=== PATIENT | female | born 1975 | race Caucasian/White ===

== ENCOUNTER → 2019-08-30 09:01 | Outpatient (CLI) | payer MEDICAID, SELFPAY ==
[2017-11-25 16:48] VITALS: BMI 27.8
== END ==
DX: R06.02 Shortness of breath (principal); R12 Heartburn; R63.1 Polydipsia

== ENCOUNTER → 2019-09-01 11:31 | Outpatient (CLI) | payer MEDICAID, SELFPAY ==
[2019-09-01 13:11] LABS: Absolute Lymphocyte Count 1.95 X10^3/uL (0.83-4.51); Absolute Neutrophil Count 3.4 X10^3/uL (2.0-7.7); Basophil# 0.05 X10^3/uL; Basophil% 0.8 % (0-1); Eosinophil# 0.14 X10^3/uL; Eosinophils% 2.3 % (0-5); Hematocrit 46.6 % (37-47); Hemoglobin 13.7 g/dL (12.0-15.0); Lymphocyte # 1.95 X10^3/ul (4.0); Lymphocyte % 32.7 % (19-41); Mean Corp Hgb Conc 29.4 g/dL (32-36); Mean Corpuscular Hgb 25.9 pg (27.0-32.0); Mean Corpuscular Volume 88.3 fL (81-99); Mean Platelet Vol. 10.6 fl (6.2-12.0); Monocyte# 0.43 X10^3/uL; Monocyte% 7.2 % (0-10); NRBC Flagged by Analyzer 0 % (0-5); Neutrophil # 3.38 X10^3/uL (2.7-7.7); Neutrophil % 56.7 % (47-70); Platelet Count 178 K/mm3 (150-450); RBC Distribution Width CV 14.5 % (11.6-14.6); RBC Distribution Width SD 46.2 fl (35.1-43.9); Red Blood Count 5.28 M/mm3 (4.2-5.4)
[2019-09-01 13:38] LABS: Hemoglobin A1c 6.1 % (4.2-6.3)
[2019-09-01 13:41] LABS: Vitamin D,25 Hydroxy 16.2 ng/mL (29.95-100.01)
[2019-09-01 13:58] LABS: ALB/GLOB Ratio 1.1 RATIO (0.9-2.4); AST(SGOT) 14 U/L (15-37); Alanine Aminotransfer ALT/SGPT 21 U/L (13-56); Albumin, Serum 3.6 g/dL (3.2-5.0); Alkaline Phosphatase 70 U/L (45-117); Anion Gap 8 (5-15); BUN 7 mg/dL (7-18); BUN/Creat Ratio 11.2 RATIO (10-20); Chloride 108 mmol/L (98-107); Cholesterol 151 mg/dL (200); Creatinine, Serum 0.63 mg/dL (0.55-1.02); EST Glomerular Filtration Rate 109 mL/min (>60); Est Glom Filt Rate - Afr Amer 132 mL/min (>60); Globulin 3.3 g/dL (2.2-4.2); Glucose 96 mg/dL (74-106); High Density Lipoprotein 56 mg/dL; Potassium 4.5 mmol/L (3.5-5.1); Protein, Total 6.9 g/dL (6.4-8.2); Sodium Level 140 mmol/L (136-145); T4 Free Direct 1.15 ng/dL (0.76-1.46); Thyroid Stim Hormone (TSH) 0.81 uIU/mL (0.358-3.74); Triglycerides 85 mg/dL; Very Low Density Lipoprotein 17 mg/dL (5-40)
[2019-09-12 16:07] LABS: Dilute Prothrombin Time (dPT) 39.9 sec (0.0-55.0); Dilute Russell Viper Venom 34.6 sec (0.0-47.0); PTT-LA 33.5 sec (0.0-51.9); Protein C Antigen 96 % (60-150); Protein C, Functional 114 % (73-180); Thrombin Time 17.4 sec (0.0-23.0); dPT Confirm Ratio 1.18 Ratio (0.00-1.40)
[2019-09-12 18:51] LABS: Anti-Cardiolipin Ab, IgG, Qn < 9 GPL U/mL (0-14); Anti-Cardiolipin Ab, IgM, Qn < 9 MPL U/mL (0-12); Interpretation Comment: (.); Protein S, Free 84 % (57-157); Protein S, Funtional 80 % (63-140); Protein S, Total 85 % (60-150)
== END ==
PROVIDERS: Referring Provider Nurse Practitioner Family
DX: R06.02 Shortness of breath (principal); R12 Heartburn; R63.1 Polydipsia
CPT/HCPCS: 36415; 80053; 80061; 81240; 81241; 81291; 82306; 83036; 84439; 84443; 85025; 85302; 85303; 85305; 85306; 86147

== ENCOUNTER → 2019-11-17 11:55 | Outpatient (CLI) | payer MEDICAID, SELFPAY ==
--- NOTE | 2019-11-17 11:58 | BI_ITS ---
MAMMOGRAPHY - BILATERAL SCREENING REASON FOR EXAM: Female, 44 years old. Routine annual screening examination. PERTINENT HISTORY: Non-contributory. TECHNIQUE: Digital bilateral breast bobby (3D mammographic acquisition) in the CC and MLO projections. 2-D mediolateral oblique (MLO) and craniocaudad (CC) views of both breasts were obtained. CAD: Full Field Digital Mammography with Computer Added Detection was performed. COMPARISON: None. Baseline examination. FINDINGS: Breast Composition: There are scattered areas of fibroglandular density. There are no dominant masses or suspicious calcifications. Benign appearing bilateral axillary lymph nodes. No other significant abnormalities are identified. BI/SCREEN MAMM (CAD) W/BOBBY BILAT IMPRESSION: Negative screening mammogram. Yearly followup mammogram recommended. (A) ASSESSMENT CATEGORY: BIRADS Category 2: Benign. A letter regarding these results will be sent to the patient by the facility within 30 days. Approximately 10% of breast cancers are not detected by mammography. A normal mammogram should not delay biopsy of a clinically suspicious abnormality. [id number] Electronically Signed: Vickey Zuniga, at 13:18 EST , Service support ,
== END ==
DX: Z12.31 Encounter for screening mammogram for malignant neoplasm of breast (principal)
CPT/HCPCS: 77063; 77067

== ENCOUNTER 2023-07-27 19:25 | Emergency (ER) | payer MEDICAID, SELFPAY ==
[2023-07-27 19:26] VITALS: BP 181/90; PULSE 78; RESP 18; TEMP 36.6; O2SAT 100; BMI 36.6
--- NOTE | 2023-07-27 20:00 | US_ITS ---
INDICATION: LEFT FOOT AND CALF PAIN EXAMINATION: Ultrasound US Venous Duplex LE Unilat / Limited TECHNIQUE: Verduzco scale, pulse wave, and color flow Doppler imaging was performed of the lower extremity venous system. The left greater saphenous, common femoral, femoral, popliteal, posterior tibial and peroneal veins were interrogated. COMPARISON: None. FINDINGS: There is normal compression, augmentation, and color flow signal throughout the visualized deep lower extremity veins. US/Venous Duplex Imag/Limited/Uni IMPRESSION: No sonographic evidence of deep venous thrombosis. Electronically Signed: Carlos A Espinoza MD at 20:51 EDT ,
--- NOTE | 2023-07-27 20:25 | ED.VIS.LOWEX ---
HPI History of Present Illness Chief Complaint: Lower Extremity Injury Informant: patient Narrative Narrative: Patient is a 48-year-old female with history of DVT/pulmonary emboli not currently on any anticoagulation presenting with atraumatic left foot and calf pain. Patient states she might of twisted it wrong but she does not remember actually injuring her leg. She has had increased pain that started at the base of her foot and is going up the medial aspect of her ankle and into her calf now. She states it feels tight in her leg. This has going on for the past few days. She is on her feet a lot for work. She is concerned she could have a blood clot so she came in for further evaluation. Denies any chest pain, shortness breath or difficulty breathing. Last had Tylenol around 2 PM. Denies any other complaints at this time. [facility] Home Medications NK 07/27/23 [History Last Taken Unknown] Allergy/AdvReac Type Severity Reaction Status Date / Time No Known Allergies Allergy Verified 07/27/23 19:28 Social History Smoking Status: Current every day smoker tobacco type: cigarettes ROS ROS ED Constitutional Constitutional ED: Denies chills or fever(s) Cardiovascular Cardiovascular: Denies chest pain or palpitations Respiratory/Chest Respiratory/Chest: Denies cough Musculoskeletal Musculoskeletal: Reports other Details: left foot/ankle pain and swelling Integumentary Denies rash Neurologic Neurologic: Denies paresthesias or weakness Hematologic/Lymphatic Hematologic/Lymphatic: Denies easy bleeding or easy bruising EXAM Physical Exam Const Vital Signs: 07/27/23 19:26 Temperature 97.9 F Temperature Source Temporal Pulse Rate 78 Respiratory Rate 18 Blood Pressure 181/90 H Blood Pressure Mean 120 Pulse Ox 100 Oxygen Delivery Method Room Air Positive well nourished and well developed General Appearance ED: well developed and NAD HEENT Reports moist mucous membranes Chest Wall inspection of chest normal Resp normal respiratory effort and clear to auscultation bilaterally Cardio regular rate, regular rhythm and no murmurs Cardio Narrative: 2+ DP pulses Extremity normal to inspection and full ROM Extremity Narrative: Left lower extremity: No significant edema appreciated. No pitting edema. No significant asymmetry of the legs appreciated. No palpable cords. Patient does have some mild tenderness palpation around the medial malleolus but no pinpoint bony tenderness. No tenderness to palpation over the proximal metatarsals. No obvious deformity. Neuro oriented x3, moves all extremities and no sensory deficits noted Sensorium / Orientation: alert Skin no wounds Rashes: no rashes MDM MDM MDM Narrative Medical decision making narrative: Patient evaluated for left medial foot/ankle pain going up to her calf. She does have a history of DVTs and is concerned that she could have a DVT. Venous duplex is negative. She does not have any cellulitic or infectious symptoms. She does go on to say that she has been moving lately since possible she might have injured her ankle. She will placed in an Jamaal wrap and counseled on RICE therapy as well as NSAID use. Patient will follow-up with PCP. Given return precautions. Discharged home in stable condition. Differential includes ankle sprain and DVT. With no bony tenderness or obvious trauma low suspicion for ankle fracture/dislocation Radiography Diagnostic Testing: Clinical Impression(s) from Imaging Studies Venous Duplex 07/27/23 20:00 IMPRESSION: No sonographic evidence of deep venous thrombosis. Electronically Signed: Carlos A Espinoza MD at 20:51 EDT Reading Location ID and State: [address] [place] [address] Tel , Service support , Discharge Plan Triage Chief Complaint: Lower Extremity Injury ED Provider: Magda Zendejas Dx/Rx/DC Orders Clinical Impression: Injury of left ankle Instructions: ED Ankle Sprain (Adult) Prescriptions: No Action NK Primary Care Provider: Nova Schrader Referrals: [facility] Nova Virk [Primary Care Provider] - Activity Restrictions/Additional Instructions: Wear Jamaal wrap. Elevate your leg as much possible and ice the ankle. Alternate ibuprofen and Tylenol as needed for pain. You do not have a DVT in your leg today. Disposition Disposition: Home, Self Care
[2023-07-27] MEDS: Acetaminophen 325 MG Tablet 650 MG PO (20:49)
[2023-07-27 22:01] VITALS: BP 132/76; PULSE 72; RESP 18; O2SAT 95
== END 2023-07-27 22:02 | disposition home or self-care (01) ==
PROVIDERS: Emergency Provider Emergency Medicine; Visit Provider Emergency Medicine
DX: S99.912A Unspecified injury of left ankle, initial encounter (principal); F17.210 Nicotine dependence, cigarettes, uncomplicated; Z86.718 Personal history of other venous thrombosis and embolism; Z86.711 Personal history of pulmonary embolism; X58.XXXA Exposure to other specified factors, initial encounter
CPT/HCPCS: 93971; 99283

== ENCOUNTER → 2023-11-24 | Outpatient (CLI) | payer MEDICAID, SELFPAY ==
--- NOTE | 2023-11-24 10:04 | RAD_ITS ---
STUDY: X-RAY - LEFT FOOT CLINICAL: Female, 48 years old. PAIN IN ANKLE TECHNIQUE: 3 view(s) of the foot. COMPARISON: None. FINDINGS: There is a plantar calcaneal spur. Normal visualized subtalar, talonavicular, calcaneocuboid, tarsal and tarsometatarsal articulations. Normal metatarsi. Normal metatarsophalangeal joint of the great toe. Normal tibial and fibular sesamoid bones. Normal interphalangeal joint of the great toe. Normal phalanges of the great toe. Normal second through fifth metatarsophalangeal joints. Normal interphalangeal joints and phalanges of the lesser toes. The soft tissue structures are unremarkable. RAD/Foot min 3 Views IMPRESSION: Plantar spur. Electronically Signed: Vickey Zuniga MD at 14:17 EST ,
--- NOTE | 2023-11-24 10:05 | RAD_ITS ---
STUDY: X-RAY - RIGHT FOOT CLINICAL: Female, 48 years old. PAIN IN ANKLE TECHNIQUE: 3 view(s) of the foot. COMPARISON: None. FINDINGS: There is a plantar calcaneal spur. Normal visualized subtalar, talonavicular, calcaneocuboid, tarsal and tarsometatarsal articulations. Normal metatarsi. Normal metatarsophalangeal joint of the great toe. Normal tibial and fibular sesamoid bones. Normal interphalangeal joint of the great toe. Normal phalanges of the great toe. Normal second through fifth metatarsophalangeal joints. Normal interphalangeal joints and phalanges of the lesser toes. The soft tissue structures are unremarkable. RAD/Foot min 3 Views IMPRESSION: Plantar spur. Electronically Signed: Vickey Zuniga MD at 14:16 EST ,
--- OUTSIDE RECORDS SUMMARY | 2023-11-24 10:20 | XMS RPT_ITS | CCD ---
Author Name Unknown Address [address] [place] [address] Organization [facility] Care Team Providers Care Behavioral Consultant Name Role Phone Edita Gramajo Unavailable Unavailable Medications Current Medications Medication Drug Class(es) Dates Sig (Normalized) Sig (Original) apixaban 2.5 mg oral tablet (1 source) Factor Xa Inhibitor take 1 tablet by mouth twice daily Eliquis 2.5 mg oral tablet ; 1 tab(s) orally 2 times a day Quantity: 0 Refills: 0 Ordered: 12-Aug-2021 Ritz, Alejandra Generic Substitution Allowed Sertraline (1 source) Serotonin Reuptake Inhibitor Zoloft Quantity: 0 Refills: 0 Ordered: 12-Aug-2021 Ritz, Alejandra Generic Substitution Allowed Problems Problem Classification Problem Date Documented Da te Episodic/Chronic Headache; including migraine (1 source) Migraine; Translations: [Migraine, unspecified, without mention of intractable migraine without mention of status migrainosus] 08-12-2021 Chronic Headache; including migraine (2 sources) Headache; Translations: [Headache] 08-12-2021 Episodic Headache; including migraine (1 source) Headache; including migraine 08-12-2021 Menstrual disorders (1 source) Menstrual cramp; Translations: [Dysmenorrhea] 08-12-2021 Chronic Unclassified (2 sources) NAUSEA PAGAN 08-12-2021 Results Test Name Value Interpretation Reference Range Facil ity Vital Signs Date Time Vital Sign Value Performing Clinician Facility 08-12-2021 13:44-0400 Body height 180.3 cm Edita Gramajo [facility] 08-12-2021 13:44-0400 Body temperature 98.06 [degF] Edita Gramajo [facility] 08-12-2021 13:44-0400 Diastolic blood pressure 80 mm[Hg] Edita Gramajo [facility] 08-12-2021 13:44-0400 Heart rate 85 /min Edita Gramajo [facility] 08-12-2021 13:44-0400 Respiratory rate 16 /min Edita Gramajo [facility] 08-12-2021 13:44-0400 SaO2% (BldA) [Mass fraction] 98 % Edita Gramajo [facility] 08-12-2021 13:44-0400 Systolic blood pressure 126 mm[Hg] Eidta Gramajo [facility] Encounters Encounter Date Encounter Type Care Provider Facility Start: 08-12-2021 End: 08-12-2021 Emergency department patient visit Edita Gramajo [facility] Payers Date Payer Category Payer Policy ID Unknown [facility] COMM [facility] Social History Date Type Detail Facility [facility] Tobacco smoking consumption unknown [facility] Summary Purpose Family History No Family History Records Found Advance Directives No Advanced Directives Records Found Additional Source Comments <item> Privacy Markings (unrecogniz ed section and content) Section Author: Vidhya Higigns PROHIBITION ON REDISCLOSURE OF CONFIDENTIAL INFORMATION This notice accompanies a disclosure of information concerning a client made to you with the consent of such client. INFORMATION SOURCE (unrecogn ized section and content) FOR RECORDS PERTAINING TO PATIENTS WHO ARE OR HAVE BEEN ENROLLED IN A CHEMICAL DEPENDENCY/SUBSTANCEABUSE PROGRAM, SOME INFORMATION MAY BE OMITTED. This clinical summary was aggregated from multiple sources. Caution should be exercised in using it in the provision of clinical care. This summary normalizes information from multiple sources, and as a consequence, information in this document may materially change the coding, format and clinical context of patient data. In addition, data may be omitted in some cases. CLINICAL DECISIONS SHOULD BE BASED ON THE PRIMARY CLINICAL RECORDS. [employer] provides no warranty or guarantee of the accuracy or completeness of information in this document.
[2023-11-24 10:24] LABS: Erythrocyte Sedimentation Rate 30 mm/hr (0-30)
[2023-11-24 10:26] LABS: Absolute Lymphocyte Count 2.64 X10^3/uL (0.83-4.51); Basophil# 0.05 X10^3/uL; Basophil% 0.8 % (0-1); Eosinophil# 0.13 X10^3/uL; Hematocrit 45.1 % (37-47); Hemoglobin 14.2 g/dL (12.0-15.0); Lymphocyte # 2.64 X10^3/ul (0.83-4.51); Lymphocyte % 41.4 % (19-41); Mean Corp Hgb Conc 31.5 g/dL (32-36); Mean Corpuscular Hgb 26.5 pg (27.0-32.0); Mean Corpuscular Volume 84.1 fL (81-99); Mean Platelet Vol. 10.7 fl (6.2-12.0); Monocyte# 0.52 X10^3/uL; Monocyte% 8.2 % (0-10); NRBC Flagged by Analyzer 0 % (0-5); Neutrophil # 3.02 X10^3/uL (2.7-7.7); Neutrophil % 47.3 % (47-70); Platelet Count 218 K/mm3 (150-450); RBC Distribution Width CV 14.5 % (11.6-14.6); RBC Distribution Width SD 44.2 fl (35.1-43.9); Red Blood Count 5.36 M/mm3 (4.2-5.4); White Blood Count 6.4 K/mm3 (4.4-11.0)
[2023-11-24 10:55] LABS: AST(SGOT) 13 U/L (15-37); Alanine Aminotransfer ALT/SGPT 25 U/L (13-56); Albumin, Serum 3.8 g/dL (3.2-5.0); Alkaline Phosphatase 84 U/L (45-117); Anion Gap 6 (5-15); BUN 12 mg/dL (7-18); BUN/Creat Ratio 17.9 RATIO (10-20); CRP < 2.90 mg/L (0.0-3.0); Calcium,Total 9.5 mg/dL (8.5-10.1); Chloride 111 mmol/L (98-107); Cholesterol 167 mg/dL (200); Creatinine, Serum 0.67 mg/dL (0.55-1.02); EST Glomerular Filtration Rate 99 mL/min (>60); Est Glom Filt Rate - Afr Amer 120 mL/min (>60); Globulin 3.9 g/dL (2.2-4.2); Glucose 95 mg/dL (74-106); High Density Lipoprotein 57 mg/dL; Potassium 4.3 mmol/L (3.5-5.1); Protein, Total 7.7 g/dL (6.4-8.2); Sodium Level 141 mmol/L (136-145); Triglycerides 125 mg/dL; Very Low Density Lipoprotein 25 mg/dL (5-40)
[2023-11-26 12:08] LABS: ANTINUCLEAR ANTIBODIES DIRECT Negative (Negative); Vitamin D 1,25-Dihydroxy 41.7 pg/mL (24.8-81.5)
== END | disposition home or self-care (01) ==
PROVIDERS: Referring Provider Nurse Practitioner Family; Visit Provider Nurse Practitioner Family
DX: R73.03 Prediabetes (principal); E55.9 Vitamin D deficiency, unspecified; E66.9 Obesity, unspecified; M25.571 Pain in right ankle and joints of right foot; M25.572 Pain in left ankle and joints of left foot; Z86.718 Personal history of other venous thrombosis and embolism
CPT/HCPCS: 36415; 73630; 80053; 80061; 82652; 83036; 85025; 85379; 85652; 86038; 86140

== ENCOUNTER → 2024-01-04 | Outpatient (CLI) | payer MEDICAID, SELFPAY ==
--- NOTE | 2024-01-04 12:52 | VDLE_ITS ---
Reason For Study: HX DVT RIGHT LEFT GSV is normal. GSV is normal. CFV is compressible, spontaneous, phasic, CFV is compressible, spontaneous, phasic, competent and demonstrates normal competent, and demonstrates normal augmentation. augmentation. FV is compressible, spontaneous, phasic, FV is compressible, spontaneous, phasic, competent and demonstrates normal competent and demonstrates normal augmentation. augmentation. POP V is compressible, spontaneous, phasic, POP V is compressible, spontaneous, phasic, competent and demonstrates normal competent and demonstrates normal augmentation. augmentation. T/P Trunk is compressible. T/P Trunk is compressible. PTV is compressible. PTV is compressible. RT PerV is compressible. LT PerV is compressible. Procedure This is a venous duplex using B-mode, color flow and spectral Doppler. Exam performed in department. The exam was diagnostic. VL/Venous Duplex US - Isaac Extrem Interpretation Summary Deep veins of the bilateral lower extremities are patent and compressible segme ntally. There is no evidence of bilateral lower extremity deep vein thrombosis. The bilateral great saphenous veins appear patent and compressible segmentally. Ordering Physician: Rosalinda Markham Referring Physician: Rosalinda Markham Performed By: Tito Orellana, RVT
--- NOTE | 2024-01-04 13:27 | RAD_ITS ---
STUDY: X-RAY - LEFT KNEE REASON FOR EXAM: Female, 48 years old. Pain. TECHNIQUE: 3 view(s) of the knee. COMPARISON: None. FINDINGS: Normal visualized distal femur. Normal visualized proximal tibia and fibula. Normal proximal tibiofibular articulation. Normal medial femorotibial compartment. Normal lateral femorotibial compartment. Normal patellofemoral articulation. The soft tissue structures are normal. RAD/Knee 4 or More Views IMPRESSION: Normal x-ray examination of the knee. Electronically Signed: Sarbjit Quintana MD at 10:52 EST ,
--- NOTE | 2024-01-04 13:27 | RAD_ITS ---
STUDY: X-RAY - RIGHT KNEE REASON FOR EXAM: Female, 48 years old. Pain. TECHNIQUE: 3 views of the right knee. COMPARISON: None. FINDINGS: Normal visualized distal femur. Normal visualized proximal tibia and fibula. Normal proximal tibiofibular articulation. There is no demonstrated fracture. Normal medial femorotibial compartment. Normal lateral femorotibial compartment. Normal patellofemoral articulation. There is no demonstrated joint effusion. The soft tissue structures are unremarkable. RAD/Knee 4 or More Views IMPRESSION: Normal x-ray examination of the right knee. Electronically Signed: Juanito Sanders MD at 10:42 EST ,
== END | disposition home or self-care (01) ==
PROVIDERS: Referring Provider Nurse Practitioner Family; Visit Provider Nurse Practitioner Family
DX: M25.561 Pain in right knee (principal); M25.562 Pain in left knee; M25.571 Pain in right ankle and joints of right foot; M25.572 Pain in left ankle and joints of left foot; Z86.718 Personal history of other venous thrombosis and embolism
CPT/HCPCS: 73564; 93970

== ENCOUNTER 2024-02-04 13:59 | Emergency (ER) | payer MEDICAID, SELFPAY ==
[2024-02-04 14:00] VITALS: BP 160/94; PULSE 82; RESP 14; TEMP 36.4; O2SAT 98; BMI 37.2
--- NOTE | 2024-02-04 14:40 | ED.VIS.BACK ---
HPI History of Present Illness Chief Complaint: Back Informant: patient Onset/Context/Timing Onset: Yesterday Context: Gradual Onset Timing: Continuous Quality: Dull and Aching Location: Thoracic Worsened by: improves with - (Coughing, turning her chest) Relieved by: - (Certain movements) Associated Symptoms Associated Symptoms: Tingling (Fingers); Negative for Numbness, Radiation to Right Leg, Radiation to Left Leg, Fever, Abdominal Pain, Dysuria, Unable to Ambulate, Unable to Transfer, Urinary Retention, Urinary Incontinence, Constipation or Fecal Incontinence Narrative Narrative: Patient presents with upper back pain that began yesterday. Patient states it is gradually getting worse. Patient states pain is constant. Patient describes it as dull and aching but sharp with coughing. Patient states it is mainly over the thoracic area. Patient states it is worse with coughing and with turning her chest. Patient states it is better with certain other movements. Patient admits to some tingling into her fingers but denies any numbness or tingling in her legs. Patient denies any pain in her legs. Patient denies any bowel or bladder changes. Patient denies any saddle anesthesia. Patient is currently on Eliquis for PE. Patient is concerned that this could be another PE as well. [facility] Medical History Abnormal LFTs (liver function tests) Anxiety and depression Atelectasis Dental abscess Poor oral hygiene Pulmonary emboli Pulmonary HTN Renal cyst Right leg DVT Home Medications apixaban 2.5 mg tablet (Eliquis) 2.5 mg PO BID 12/14/23 [History Last Taken Unknown] rizatriptan 5 mg tablet See Rx Instructions PO .COMPLEX 12/14/23 [History Last Taken Unknown] sertraline 50 mg tablet 50 mg PO DAILY 12/14/23 [History Last Taken Unknown] Allergy/AdvReac Type Severity Reaction Status Date / Time No Known Allergies Allergy Verified 02/04/24 14:02 Family History (Updated 12/14/23 @ 16:58 by Reanna Kern RN) Son Sudden cardiac , Onset Age: 19 due to heart failure, enlarged heart with a prolapsed valve Father Hypertension Mother Mitral valve insufficiency Surgical History History of cholecystectomy History of tubal ligation Hx of appendectomy Social History Smoking Status: Current every day smoker tobacco type: cigarettes alcohol intake: current details: rare substance use type: does not use caffeine: Yes Type: carbonated beverages Number of servings: 3 and coffee Number of servings: 3 ROS ROS ED Constitutional Constitutional ED: Denies chills or fever(s) Eyes Eyes: Denies blurry vision or change in vision ENT ENT ED: Denies rhinorrhea or sore throat Cardiovascular Cardiovascular: Denies chest pain or palpitations Respiratory/Chest Respiratory/Chest: Denies cough or dyspnea Gastrointestinal Gastrointestinal: Denies nausea or vomiting Genitourinary Genitourinary ED: Denies dysuria or hematuria Musculoskeletal Musculoskeletal: Reports back pain and neck pain Integumentary Denies abscess or rash Neurologic Neurologic: Denies headache(s) or weakness Allergic/Immunologic Allergic/Immunologic ED: Denies mouth swelling or urticaria EXAM Physical Exam Const Vital Signs: 02/04/24 14:00 02/04/24 14:00 02/04/24 16:00 Temperature 97.5 F L Temperature Source Temporal Pulse Rate 82 82 81 Respiratory Rate 14 14 14 Blood Pressure 160/94 H 160/94 H 151/84 H Blood Pressure Mean 116 116 106 Pulse Ox 98 98 97 Oxygen Delivery Method Room Air Room Air Room Air Positive well nourished, well developed and obese General Appearance ED: well developed and NAD Nutritional Appearance: obese HEENT Reports moist mucous membranes Neck supple and no JVD Resp normal respiratory effort and clear to auscultation bilaterally Cardio regular rate and regular rhythm GI soft to palpation, non-tender and non-distended Back/Spine Back/Spine Narrative: There is mild tenderness over the thoracic paraspinal muscles bilaterally. There is no midline tenderness. There is no bony crepitance or step-off. There is no edema or ecchymosis. Range of motion was slightly limited in all motions of the thoracic spine secondary to pain. Thoracic Spine / Upper Back: paraspinal muscle tenderness Extremity normal to inspection General Extremety ED: Negative for edema or tenderness General Extremity: Negative for edema Neuro oriented x3 and no sensory deficits noted Sensorium / Orientation: alert Motor Exam: strength 5/5 throughout Deep Tendon Reflexes: Rt Patellar (L4): 2+, Lt Patellar (L4): 2+, Rt Ankle (S1): 2+ and Lt Ankle (S1): 2+ Deep Tendon Reflexes Back: Rt Patellar (L4): 2+, Lt Patellar (L4): 2+, Rt Ankle (S1): 2+ and Lt Ankle (S1): 2+ Psych mental status grossly normal MDM MDM MDM Narrative Medical decision making narrative: Differential diagnosis includes thoracic strain, pneumonia, and pulmonary embolism. CBC will be obtained to assess for leukocytosis and anemia. Basic metabolic profile will be obtained to assess for electrolyte abnormality and renal function. D-dimer will be obtained to assess for pulmonary embolism. PT was INR will be obtained to assess for coagulopathy. Lab Data Attestation: I reviewed the patient's lab results. Lab results narrative: CBC was reviewed and was essentially within normal limits. Basic metabolic profile was reviewed and was within normal limits. PT with INR was reviewed and was normal. D-dimer was reviewed and was elevated at 0.66. Labs: Laboratory Results - last 24 hr 02/04/24 14:45 WBC 6.8 RBC 5.48 H Hgb 14.1 Hct 45.3 MCV 82.7 MCH 25.7 L MCHC 31.1 L RDW Std Deviation 42.4 RDW Coeff of Cuong 14.3 Plt Count 204 MPV 10.2 Immature Gran % (Auto) 0.300 Neut % (Auto) 55.2 Lymph % (Auto) 34.9 [place] % (Auto) 7.4 Eos % (Auto) 1.6 Baso % (Auto) 0.6 Absolute Neuts (auto) 3.7 Absolute Lymphs (auto) 2.36 Nucleated RBC % 0 PT 12.8 INR 1.0 D-Dimer Quant (PE/DVT) 0.66 H* Sodium 138 Potassium 3.7 Chloride 111 H Carbon Dioxide 24.0 Anion Gap 3 L BUN 8 Creatinine 0.64 Estim Creat Clear Calc 152.66 Est GFR (MDRD) Af Amer 126 Est GFR (MDRD) Non-Af 104 BUN/Creatinine Ratio 12.4 Glucose 104 Calcium 9.2 Treatment and Re-Evaluation Narrative: Because of the elevated D-dimer, CTA of the chest was ordered. I was informed by nursing staff that patient did not want to wait and have the CTA of the chest performed. Patient left without completing treatment. Discharge Plan Triage Chief Complaint: Back ED Provider: Ramses Josue Dx/Rx/DC Orders Clinical Impression: Acute thoracic back pain, Smoker Prescriptions: No Action Eliquis 2.5 mg tablet 2.5 mg PO BID rizatriptan 5 mg tablet See Rx Instructions PO .COMPLEX Rx Instructions: take 1 tablet at onset of headache; if no relief, may repeat 1 tablet after at least 2 hrs PO sertraline 50 mg tablet 50 mg PO DAILY Primary Care Provider: [facility] Nova Virk Referrals: [facility] Nova Virk [Primary Care Provider] - 3-5 Days Disposition Disposition: Elopement
[2024-02-04 14:57] LABS: Absolute Lymphocyte Count 2.36 X10^3/uL (0.83-4.51); Absolute Neutrophil Count 3.7 X10^3/uL (2.0-7.7); Basophil# 0.04 X10^3/uL; Basophil% 0.6 % (0-1); Eosinophil# 0.11 X10^3/uL; Eosinophils% 1.6 % (0-5); Hematocrit 45.3 % (37-47); Hemoglobin 14.1 g/dL (12.0-15.0); Lymphocyte # 2.36 X10^3/ul (0.83-4.51); Lymphocyte % 34.9 % (19-41); Mean Corp Hgb Conc 31.1 g/dL (32-36); Mean Corpuscular Hgb 25.7 pg (27.0-32.0); Mean Corpuscular Volume 82.7 fL (81-99); Mean Platelet Vol. 10.2 fl (6.2-12.0); Monocyte% 7.4 % (0-10); NRBC Flagged by Analyzer 0 % (0-5); Neutrophil # 3.74 X10^3/uL (2.7-7.7); Neutrophil % 55.2 % (47-70); Platelet Count 204 K/mm3 (150-450); RBC Distribution Width CV 14.3 % (11.6-14.6); RBC Distribution Width SD 42.4 fl (35.1-43.9); Red Blood Count 5.48 M/mm3 (4.2-5.4); White Blood Count 6.8 K/mm3 (4.4-11.0)
[2024-02-04 15:05] LABS: Prothrombin Time (Protime)PT. 12.8 SECONDS (11.7-14.9)
[2024-02-04 15:07] LABS: Anion Gap 3 (5-15); BUN 8 mg/dL (7-18); BUN/Creat Ratio 12.4 RATIO (10-20); Calcium,Total 9.2 mg/dL (8.5-10.1); Chloride 111 mmol/L (98-107); Creatinine, Serum 0.64 mg/dL (0.55-1.02); EST Glomerular Filtration Rate 104 mL/min (>60); Est Glom Filt Rate - Afr Amer 126 mL/min (>60); Estimated Creatinine Clearance 152.66 ml/min; Glucose 104 mg/dL (74-106); Potassium 3.7 mmol/L (3.5-5.1); Sodium Level 138 mmol/L (136-145)
[2024-02-04 15:23] LABS: D-Dimer Quantitative (DVT/PE) 0.66 FEU/ug/m (0.27-0.49)
[2024-02-04 16:00] VITALS: BP 151/84; PULSE 81; RESP 14; O2SAT 97
--- NOTE | 2024-02-04 16:09 | ED.RN ---
I DIDNT KNOW IT WAS GOING TO TAKE THIS LONG, MY DAUGHTER HAS TO BE AT WORK
== END 2024-02-04 16:16 | disposition left against medical advice (07) ==
PROVIDERS: Emergency Provider Emergency Medicine; Visit Provider Emergency Medicine
DX: M54.6 Pain in thoracic spine (principal); F17.210 Nicotine dependence, cigarettes, uncomplicated; E66.9 Obesity, unspecified; Z79.01 Long term (current) use of anticoagulants; Z86.711 Personal history of pulmonary embolism
CPT/HCPCS: 80048; 85025; 85379; 85610; 99284